=== PATIENT | female | born 1950 | race Caucasian/White ===

== ENCOUNTER 2016-06-11 10:48 | Emergency (ER) | payer MEDICARE, MEDICAID ==
[~2016-06-11] VITALS: Ht 157.4 cm; Wt 66.2 kg
[~2016-06-11 10:48] MED LIST: ACETAZOLAMIDE250 MG PO; AGGRENOX 25 MG-1 CER PO; ALBUTEROL SULFA60 ML INH; ALBUTEROL2.5 MG/0.5 INH; ALDACTONE25 MG PO; ALPRAZOLAM0.25 MG PO; ARANESP100 MCG/1 SC; ARICEPT5 M1 PO; ASPIRIN81 M1 PO; AVPAK LEVETIRA PO; AVPAK LEVETIRA500 MG PO; BREO ELLIPTA 11 EACH IH; BUMETANIDE2 MG PO; CARAFATE1 GM PO; CARDIZEM30 MG PO; CARVEDILOL12.5 MG PO; CEFTIN250 MG PO; CEFUROXIME AXE250 MG PO; CHEST CONGESTI400 MG PO; CIPRO500 MG PO; COLACE100 MG PO; COREG3.125 MG PO; DIGOX0.125 MG PO; DIGOXIN0.25 MG PO; DULCOLAX10 M1 RC; DULCOLAX10 MG R; DUONEB 3 MG/3 ML3 M1 INH; Duoneb 3ML 3 MG/3 ML INH; EXELON3 MG PO; EXELON9.5 MG/24 T; FE-TABS325 MG PO; FERROUS SULFAT325 M1 PO; FLEET ENEMA 13135 ML R; FLUCONAZOLE100 MG PO; FOLIC ACID0.4 MG PO; GOOD NEIGHBOR150 MG PO; GUAIFENESIN ER600 MG PO; HUMALOG100 U/ML SC; HUMULIN; HUMULIN R100 U/ML SC; IRON TABLETS325 MG PO; JANUVIA50 MG PO; KENALOG0.1% TP; KEPPRA500 MG PO; KLOR-CON20 MEQ PO; LANOXIN0.125 MG PO; LANOXIN250 MCG PO; LANTUS100 U/ML SC; LEVEMIR100 U/ML SC; LEVOFLOXACIN500 MG PO; LEVOTHYROXIN0.125 MG PO; LEVOTHYROXINE0.15 MG PO; LEXAPRO10 MG PO; LISINOPRIL2.5 MG PO; LOPRESSOR25 MG PO; Lopressor25 MG PO; MAG-OX 400400 MG PO; MAPAP325 MG PO; MEGACE 40400 MG/10 PO; METOPROLOL SUCC50 M1 PO; METOPROLOL TARTRATE PO; MICRO-K 1010 MEQ PO; MIDODRINE HCL10 MG PO; MIDODRINE HCL5 M1 PO; MIDODRINE HCL5 MG PO; MIRTAZAPINE15 M2 PO; MIRTAZAPINE30 MG PO; MOM30 ML PO; MYCOLOG CREAM 115 GM TD; NITROGLYCERIN0.4 MG PO; NITROSTAT0.4 MG SL; NOVOLIN R100 U/ML SC; NOVOLOG FLEX100 U/ML SC; NOVOLOG100 U/ML IJ; NYSTATIN CREAM15 GM; OMEPRAZOLE20 MG PO; ONDANSETRON ODT4 MG PO; PERCOCET 325 MG1 TA7 PO; PERFOROMIS20 MCG/2 M INH; PHOS LO667 MG PO; PHOS-NAK1 PDR PO; PREDNISONE10 MG PO; PRILOSEC20 MG PO; PRO STAT RC PO; PRO-STAT 64 3030 ML PO; PROSTAT PO; PROTEIN1 PDR PO; PROTONIX40 MG PO; PULMICORT RESP0.5 M1 INH; PULMICORT RESP0.5 MG INH; RENAGEL800 MG PO; RISPERDAL0.25 MG PO; RISPERDAL0.5 MG PO; RISPERIDONE1 M1 PO; SERTRALINE HCL100 MG PO; SERTRALINE100 MG PO; SONATA10 MG PO; STRESS FORMULA PO; SYMBICORT1 AE1 INH; SYNTHROID,LEV112 MCG PO; SYNTHROID,LEV150 MCG PO; SYNTHROID0.125 MG PO; TOPROL XL25 MG PO; VALACYCLOVIR H500 MG PO; VALTREX500 MG PO; VITAMIN D2400 IU PO; VITAMIN D50000 I2 PO; XOPENEX0.63 MG INH; ZOFRAN4 MG PO; ZOLOFT100 MG PO
[2016-06-11] MEDS ORDERED: OMEPRAZOLE D/R20 MG PO (11:00)
[2016-06-11] MEDS ORDERED: SERTRALINE HYDR50 MG PO (11:00)
[2016-06-11] MEDS ORDERED: DOCUSATE SOD100 MG PO (11:00)
[2016-06-11 11:30] LABS: BASO % 0.3 % (0.0-1.0); EOS % 0.6 % (1.0-4.0); HEMATOCRIT 31.7 % (37.0-47.0); HEMOGLOBIN 9.1 g/dl (12.0-16.0); IG # 0.1 10*3/uL (0.0-0.1); LYMPH # 0.3 10*3/uL (1.3-4.4); LYMPH % 5.4 % (27.0-41.0); MEAN CELL VOLUME 107.8 fl (81.0-99.0); MEAN CORPUSCULAR HGB CONC 28.7 g/dl (33.0-37.0); MEAN PLATELET VOLUME 9.6 fl (9.6-12.3); MONO # 0.7 10*3/uL (0.1-1.0); MONO % 10.9 % (3.0-9.0); NEUT # 5.2 10*3/uL (2.3-7.9); NEUT % 81.7 % (47.0-73.0); PLATELET COUNT AUTOMATED 66 10*3/uL (130-400); RED BLOOD COUNT 2.94 10*6/uL (4.10-5.10); RED CELL DISTRI WIDTH 17.4 % (0-14.5); WHITE BLOOD COUNT 6.3 10*3/uL (4.8-10.8)
[2016-06-11 11:45] LABS: ALBUMIN 3.1 gm/dl (3.1-4.5); BILIRUBIN, TOTAL 0.6 mg/dl (0.2-1.0); POTASSIUM 4.5 mmol/L (3.5-5.1)
[2016-06-11 12:26] VITALS: BP 96/48
[2016-06-11] MEDS ORDERED: RISPERDAL0.5 MG PO (12:50)
== END 2016-06-11 13:14 | disposition home or self-care (01) ==
LOC: ED 10:48
PROVIDERS: Registered Nurse
DX: R53.83 Other fatigue (principal); R53.81 Other malaise; N18.6 End stage renal disease; Z91.041 Radiographic dye allergy status; Z88.8 Allergy status to other drugs, medicaments and biological substances; Z79.899 Other long term (current) drug therapy

== ENCOUNTER 2016-06-17 16:27 | Inpatient (IN) | payer MEDICARE, MEDICAID ==
[~2016-06-17] VITALS: Ht 157.5 cm; Wt 70.0 kg
--- NOTE | ~2016-06-17 | WRIGHTHP ---
[place], [place] PATIENT HISTORY AND PHYSICAL EXAM NAME: KRISTINA CARVER [facility] #: [id number] UNIT #: [id number] ROOM: 408 DOCTOR: JUSTA HUGHES MD BIRTHDATE: [birth year] DOS: 06/17/2016 HISTORY OF PRESENT ILLNESS: This patient is 66 years old. The patient is very well known to us, comes in with complaints of confusion. The family states that she has been confused and tired and worn out. The patient was sent to the Emergency Room a few days ago for the same problem. Work up at that time was negative. The patient was discharged home on Risperdal, continued to have increased confusion, so the brought her back to the Emergency Room. The patient was quite agitated and confused initially when she arrived, but this morning, she was sleeping and is able to answer questions and does not have any evidence of confusion. PAST MEDICAL HISTORY: Significant for: 1. Benign hypertension. 2. Chronic atrial fibrillation, not a candidate for Coumadin. 3. History of cerebral hemorrhage with encephalomalacia. 4. Recent history of pancytopenia. 5. End-stage renal failure. 6. Vascular dementia. MEDICATIONS: She is on currently are Breo Ellipta b.i.d., DuoNebs q.i.d., digoxin 0.125 daily, Colace 100 daily, levothyroxine 0.125 daily, midodrine 10 mg t.i.d. for hemodialysis, mirtazapine 15 at bedtime, omeprazole 20 daily, ranitidine 150 b.i.d., Risperdal 0.5 at bedtime, sertraline daily, Exelon 9.5 mg daily. SOCIAL HISTORY: Nonsmoker, does not use any alcohol. Lives at home with her . PHYSICAL EXAMINATION: GENERAL: The patient is again awake and alert and oriented this morning. VITAL SIGNS: Graphic trend shows that she is afebrile. Pressure is 140/70, pulse of 86, respirations 14, afebrile. HEAD AND NECK: Shows a matted left eye. LUNGS: Diminished breath sounds. No wheezes, rales, or rhonchi heard. HEART: Irregular. ABDOMEN: Obese, but soft. EXTREMITIES: Without any edema. Stage II small ulcers noticed on the sacral area. ASSESSMENT AND PLAN: 1. End-stage renal failure, on dialysis. 2. Metabolic encephalopathy, possibly from vascular dementia. The patient is already on Exelon and Risperdal. Dr. Iyer will be consulted to see whether she would be a candidate for Behavioral Health Unit. CT of the head did not show any new pathology. 3. Benign hypertension, controlled. 4. Sacral decubiti. TheraHoney dressings have been ordered. 5. Cystic structures in the body of the pancreas, unable to have MRI because of the pacemaker, so a CA99 will be ordered. [place], [place] PATIENT HISTORY AND PHYSICAL EXAM NAME: KRISTINA CARVER UNIT #: [id number] ROOM: [facility] DOCTOR: JUSTA HUGHES MD BIRTHDATE: [birth year] JUSTA HUGHES MD CM:HISPHYS:PATIENT HISTORY AND PHYSICAL EXAMINATION [id number] JUSTA HUGHES MD 06/18/16 0947 interface
--- NOTE | ~2016-06-17 | EKG ---
[place], [place] ELECTROCARDIOGRAM REPORT NAME: KRISTINA CARVER UNIT #: [id number] ROOM: 408 DOCTOR: HENRY KIRKPATRICK MD BIRTHDATE: [birth year] DOS: 06/17/2016 TIME: 17:05 p.m. FINDINGS: The patient appears to be in a paced rhythm at a rate of 70. Background rhythm could not be determined and maybe atrial fibrillation. Ventricular complexes are 100% paced. Abnormal electrocardiogram. HENRY KIRKPATRICK MD CM:EKGRPT:ELECTROCARDIOGRAM REPORT [id number] HENRY KIRKPATRICK MD
--- NOTE | ~2016-06-17 | DS ---
[place], [place] DISCHARGE SUMMARY NAME: KRISTINA CARVER [facility] #: [id number] UNIT #: [id number] ROOM: 408 DOCTOR: JUSTA HUGHES MD BIRTHDATE: [birth year] DOS: 06/19/2016 HISTORY OF PRESENT ILLNESS AND HOSPITAL COURSE: This patient is very well known to us. The patient was brought into the Emergency Room by her saying that she has been confused and also has been tired and weak. She had a nosebleed that day morning. She has had multiple ER visits with similar the complaints, was recently seen in the ER, was advised addition of Risperdal to her regimen. After she arrived, she appeared to be quite confused, agitated, anxious and combative. The Risperdal dosage was increased. After admission, the patient also had a consultation with Dr. Iyer as well as renal consult with Dr. Baca. The patient's medications remained unchanged except for the increase in the Risperdal. CT of the abdomen and pelvis was negative except for a cystic structure in the pancreas. They recommended an MRI. Since she has a pacemaker, we are unable to do an MRI. A CA 19-9 was ordered. I do not have the results of that at the time of dictation. The patient's confusion and encephalopathy has improved and she is back to her baseline, so the plan is to discharge her to home. DISCHARGE DIAGNOSES: 1. Vascular dementia. 2. Metabolic encephalopathy from dementia. 3. Hypothyroidism. 4. End-stage renal failure, on dialysis. 5. Chronic atrial fibrillation. 6. History of cerebral hemorrhage. 7. Major depression, mild, recurrent. 8. Type 2 diabetes mellitus, diet controlled. 9. Benign hypertension. 10. Acute conjunctivitis, left eye. DISCHARGE MEDICATIONS: Medications on discharge will be the same as on admission, no changes were made other than Risperdal. Risperdal 1 mg at bedtime, Cipro for local application to eyes twice a day for 7 days, levothyroxine 0.125 mg daily, Exelon 9.5 mg daily, mirtazapine 15 at bedtime, Midrin 10 t.i.d. on dialysis days, digoxin 0.125 daily, Breo Ellipta 100 twice a day, DuoNeb q.i.d., Colace 100 daily, sertraline 50 daily, also omeprazole 20 daily. Ranitidine 150 mg daily was stopped. [place], [place] DISCHARGE SUMMARY [facility]: [id number] #: [id number] ROOM: [facility] DOCTOR: JUSTA HUGHES MD BIRTHDATE: [birth year] JUSTA HUGHES MD CM:DISCHARG [id number] JUSTA HUGHES MD 06/19/16 1621 interface
--- NOTE | ~2016-06-17 | CON ---
[place], [place] REPORT OF CONSULTATION [facility]STINA [id number] UN[facility] #: [id number] ROOM: 408 DOCTOR: STEPHANIA LUCAS MD BIRTHDATE: [birth year] DOS: 06/19/2016 PSYCHIATRIC CONSULT CHIEF COMPLAINT: "I don't know what they are going to do to me today." HISTORY OF PRESENT ILLNESS: This is a 66-year-old white female with end-stage renal disease on dialysis, presenting to the Emergency Room with complaints of nosebleed that would not stop and coughing up blood secondary to this. She was admitted due to this factor and the fact that she had episodic confusion. She has multiple medical issues including anemia of chronic disease, atrial fibrillation with rapid ventricular response, cardiomegaly, chronic idiopathic thrombocytopenia, chronic renal failure, depression, diabetes, end-stage renal disease, GI bleed, hypertension, cardiac pacemaker insertion, hypothyroidism, intracerebral hemorrhage, metabolic encephalopathy, obstructive sleep apnea, pericarditis, pulmonary congested and seizure disorder. MENTAL STATUS: The patient is alert and oriented to person, place and time. She did at first ask if I was the anesthesiologist, later, she said, "No, you are the doctor whose office is on [address], you are the psychiatrist." She seemed fairly pleasant and bright, she was fairly much alert and oriented to all 3 spheres. She has some short term memory loss, but nothing major. She does endorse some depressive symptomatology, but nothing severe. She denies suicidality, homicidality or any self-injurious thoughts. There is no ban, no psychosis. DIAGNOSIS: Major depression, recurrent. PLAN: I will discontinue the Zoloft as this is subtherapeutic and she is already on Remeron. This puts her at risk for serotonin syndrome and other side effects. I will increase her Exelon patch from 9.5-13.3 mg daily, maximizing its potential benefit. We will rule out any other organic factors by checking a B12, vitamin D, TSH and serum ammonia level. At this point, she can follow up in the office and is not a candidate for inpatient psychiatric stabilization. STEPHANIA LUCAS MD CM:CONSTR:REPORT OF CONSULTATION 0854 06/20/16 0129 interface
--- NOTE | ~2016-06-17 | PR ---
[place], [place] PROGRESS NOTE NAME: KRISTINA CARVER [facility] #: [id number] UNIT #: [id number] ROOM: 408 DOCTOR: JUSTA HUGHES MD BIRTHDATE: [birth year] DOS: 06/19/2016 SUBJECTIVE: The patient has no complaints rested well, did not have any periods of confusion. This morning, she is aware that she is in the hospital. OBJECTIVE: VITAL SIGNS: Graphic trend shows blood pressure of 94/49, pulse of 70, respirations 20, temperature 97.7. LUNGS: Clear. HEART: Irregular. ABDOMEN: Obese. EXTREMITIES: Without any edema. ASSESSMENT AND PLAN: 1. Vascular dementia with metabolic encephalopathy seems to be stable on the current dose of medications. 2. End-stage renal failure, on dialysis. No new changes made in the treatment plan. Continue current care. The patient is stable and can be discharged today. JUSTA HUGHES MD CM:PNTRANS [id number] JUSTA HUGHES MD 06/20/16 0024 interface
[2016-06-17 16:27] VITALS: BP 115/21
[~2016-06-17 16:27] MED LIST changes: +DOCUSATE SOD100 MG PO; +OMEPRAZOLE D/R20 MG PO; +SERTRALINE HYDR50 MG PO
[2016-06-17 17:15] LABS: BASO % 0.2 % (0.0-1.0); EOS # 0.1 10*3/uL (0.0-0.4); EOS % 0.6 % (1.0-4.0); HEMATOCRIT 30.6 % (37.0-47.0); HEMOGLOBIN 8.8 g/dl (12.0-16.0); IG # 0.1 10*3/uL (0.0-0.1); LYMPH # 0.2 10*3/uL (1.3-4.4); LYMPH % 2.4 % (27.0-41.0); MEAN CELL VOLUME 107.7 fl (81.0-99.0); MEAN CORPUSCULAR HGB CONC 28.8 g/dl (33.0-37.0); MEAN PLATELET VOLUME 9.8 fl (9.6-12.3); MONO # 0.6 10*3/uL (0.1-1.0); MONO % 7.4 % (3.0-9.0); NEUT # 7.2 10*3/uL (2.3-7.9); NEUT % 87.8 % (47.0-73.0); NUCLEATED RED BLOOD CELL 0.2 % (0.0-0.0); PLATELET COUNT AUTOMATED 69 10*3/uL (130-400); RED BLOOD COUNT 2.84 10*6/uL (4.10-5.10); RED CELL DISTRI WIDTH 17.2 % (0-14.5); WHITE BLOOD COUNT 8.2 10*3/uL (4.8-10.8)
[2016-06-17 17:23] LABS: INTERNATIONAL NORM RATIO 1.1 (2.0-3.5); PROTHROMBIN TIME 11.4 SECONDS (9.0-12.4)
[2016-06-17 17:33] LABS: BILIRUBIN, TOTAL 0.7 mg/dl (0.2-1.0); CKMB 3.3 ng/ml (0.5-3.6); MAGNESIUM 1.6 mg/dL (1.5-2.1); POTASSIUM 4.6 mmol/L (3.5-5.1); TOTAL PROTEIN 6.9 gm/dL (6.4-8.2); TROPONIN I 0.041 ng/ml (<0.045)
[2016-06-17 17:46] VITALS: BP 80/40
[2016-06-17 18:02] VITALS: BP 85/49
[2016-06-17 19:21] VITALS: BP 93/46
[2016-06-17 21:03] VITALS: BP 98/45
[2016-06-18] VITALS: BP 98/50
[2016-06-18 08:00] VITALS: BP 92/40
[2016-06-18 11:52] VITALS: BP 95/41
[2016-06-18 16:00] VITALS: BP 93/47
[2016-06-18 20:00] VITALS: BP 92/46
[2016-06-19] VITALS: BP 94/49
[2016-06-19] MEDS ORDERED: CIPROFLOXACIN2.5 M1 OPH (06:24)
[2016-06-19] MEDS ORDERED: RISPERIDONE1 MG PO (06:24)
[2016-06-19 08:00] VITALS: BP 101/52
[2016-06-19 10:55] LABS: VITAMIN D, 25-HYDROXY 18.9 ng/mL (30-100)
== END 2016-06-19 11:25 | disposition home or self-care (01) | DRG 884 ==
LOC: ED 16:27 → EDHOLD 20:01 → 4E 20:01
PROVIDERS: Physician Assistant; Psychiatry & Neurology Psychiatry
DX: F01.50 Vascular dementia, unspecified severity, without behavioral disturbance, psychotic disturbance, mood disturbance, and anxiety (principal); G93.41 Metabolic encephalopathy; L89.150 Pressure ulcer of sacral region, unstageable; D69.3 Immune thrombocytopenic purpura; N18.6 End stage renal disease; E11.22 Type 2 diabetes mellitus with diabetic chronic kidney disease; K86.1 Other chronic pancreatitis; I13.11 Hypertensive heart and chronic kidney disease without heart failure, with stage 5 chronic kidney disease, or end stage renal disease; F33.0 Major depressive disorder, recurrent, mild; I48.2 Chronic atrial fibrillation; G47.33 Obstructive sleep apnea (adult) (pediatric); G40.909 Epilepsy, unspecified, not intractable, without status epilepticus; H10.12 Acute atopic conjunctivitis, left eye; D64.9 Anemia, unspecified; E03.9 Hypothyroidism, unspecified; Z79.01 Long term (current) use of anticoagulants; Z86.73 Personal history of transient ischemic attack (TIA), and cerebral infarction without residual deficits; Z79.899 Other long term (current) drug therapy; Z88.8 Allergy status to other drugs, medicaments and biological substances; Z99.2 Dependence on renal dialysis; Z91.041 Radiographic dye allergy status; Z90.711 Acquired absence of uterus with remaining cervical stump; Z90.49 Acquired absence of other specified parts of digestive tract; Z82.49 Family history of ischemic heart disease and other diseases of the circulatory system; Z82.3 Family history of stroke; Z83.3 Family history of diabetes mellitus

== ENCOUNTER 2016-10-04 20:08 | Emergency (ER) | payer MEDICARE, MEDICAID ==
[~2016-10-04] VITALS: Ht 165 cm; Wt 66.2 kg
[2016-10-04 20:08] VITALS: BP 88/54
[~2016-10-04 20:08] MED LIST changes: +CIPROFLOXACIN2.5 M1 OPH; +RISPERIDONE1 MG PO
[2016-10-04 20:58] LABS: INTERNATIONAL NORM RATIO 1.1 (2.0-3.5); PROTHROMBIN TIME 11.4 SECONDS (9.0-12.4)
[2016-10-04 21:05] LABS: ALBUMIN 2.5 gm/dl (3.1-4.5); BILIRUBIN, TOTAL 0.5 mg/dl (0.2-1.0); MAGNESIUM 1.8 mg/dL (1.5-2.1); POTASSIUM 3.6 mmol/L (3.5-5.1); TROPONIN I 0.036 ng/ml (<0.045)
[2016-10-04 22:05] LABS: HEMATOCRIT 27.2 % (37.0-47.0); HEMOGLOBIN 7.5 g/dl (12.0-16.0); MEAN CELL VOLUME 116.2 fl (81.0-99.0); MEAN CORPUSCULAR HGB 32.1 pg (27.0-31.0); MEAN CORPUSCULAR HGB CONC 27.6 g/dl (33.0-37.0); MEAN PLATELET VOLUME 11.1 fl (9.6-12.3); NUCLEATED RED BLOOD CELL 0.7 % (0.0-0.0); PLATELET COUNT AUTOMATED 37 10*3/uL (130-400); RED BLOOD COUNT 2.34 10*6/uL (4.10-5.10); RED CELL DISTRI WIDTH 18.5 % (0-14.5); WHITE BLOOD COUNT 5.4 10*3/uL (4.8-10.8)
[2016-10-04 22:25] LABS: BASOPHIL # 0.1 10*3/uL (0-0.1); BASOPHILS 1 % (0-1); EOSINOPHIL # 0.1 10*3/uL (0-0.4); EOSINOPHILS 1 % (1-4); LYMPHOCYTE # 0.2 10*3/uL (1.3-4.4); MONOCYTE # 0.3 10*3/uL (0.1-1.0); NEUTROPHIL # 4.8 10*3/uL (2.3-7.9); NEUTROPHILS 88 % (47-73); PLATELET SUFFICIENCY LOW (NORMAL); TOTAL CELLS COUNTED 100 #CELLS
== END 2016-10-04 23:03 | disposition home or self-care (01) ==
LOC: ED 20:08
PROVIDERS: Nurse Practitioner Family
DX: R42 Dizziness and giddiness (principal); R06.02 Shortness of breath; Z91.041 Radiographic dye allergy status; Z88.8 Allergy status to other drugs, medicaments and biological substances; Z79.899 Other long term (current) drug therapy

== ENCOUNTER 2016-10-13 12:44 | Inpatient (IN) | payer MEDICARE, MEDICAID ==
[~2016-10-13] VITALS: Ht 160 cm; Wt 66.3 kg
[2016-10-13] VITALS (28 sets, daily range): BP systolic 53–91; BP diastolic 25–94
--- NOTE | ~2016-10-13 | WRIGHTHP ---
[place], [place] PATIENT HISTORY AND PHYSICAL EXAM [id number] UNIT #: [id number] ROOM: [place] [address] DOCTOR: JUSTA HUGHES MD BIRTHDATE: [birth year] DOS: 10/13/2016 HISTORY OF PRESENT ILLNESS: This patient is very well known to us. She was brought in to the office for a routine appointment by . The patient was quite confused and is not able to answer questions appropriately, but she has been getting her dialysis and was noted to have low blood pressure, but the dialysis continued. She denies having any chest pains, palpitations or shortness of breath. Does not have any fever or chills. Does not have any urinary symptoms. PAST MEDICAL HISTORY: 1. Diabetes mellitus with diabetic nephropathy and end-stage renal failure. 2. Chronic hypotension. 3. Chronic atrial fibrillation. 4. Not a candidate for anticoagulants. SOCIAL HISTORY: Nonsmoker. Lives at home with her . PHYSICAL EXAMINATION: GENERAL: The patient is awake and alert and oriented. VITAL SIGNS: Blood pressure was 80/60, pulse of 90 and irregular, respirations 14, afebrile. LUNGS: Diminished breath sounds, clear. HEART: Irregular. ABDOMEN: Obese. EXTREMITIES: Without any edema. NEUROLOGIC: Awake and alert, oriented to person and place. ASSESSMENT AND PLAN: 1. The patient has encephalopathy, possible metabolic, rule out urinary tract infection and sepsis. 2. End-stage renal failure, on dialysis. The patient has progressively worsened over the last several months and was suggested hospice care, but the family was not ready for that. 3. Chronic hypotension from end-stage renal failure. The patient is already on Midrin. We will make it at daily and we will ask Dr. Abraham to see the patient. [place], [place] PATIENT HISTORY AND PHYSICAL EXAM NAME: KRISTINA CARVER UNIT #: [id number] ROOM: [place] [address] DOCTOR: JUSTA HUGHES MD BIRTHDATE: [birth year] JUSTA HUGHES MD CM:HISPHYS:PATIENT HISTORY AND PHYSICAL EXAMINATION 0959 JUSTA HUGHES MD 10/26/16 0116 interface
--- NOTE | 2016-10-13 13:45 | NUR ---
PATIENT ARRRIVED TO THE FLOOR FROM FIRST FLOOR ADMITTING A DIRECT ADMIT FROM THE OFFICE OF DR. HUGHES. PATIENT'S BLOOD PRESSURE WAS 60/40 AND HER HEART RATE DIPPED INTO THE 30S FOR A BRIEF PERIOD. PATIENTS' WAS NOT ON THE FLOOR TO VERIFY HER CODE STATUS. GAUGE MACHINE OPERATOR TIMO SPENCER WAS ON THE UNIT AND A RAPID RESPONSE WAS CALLED.
--- NOTE | 2016-10-13 14:00 | NUR ---
A 66, admitted to ICCU, under the services of JUSTA Holder MD with a diagnosis of ENCEPHALOPATHY. Chief complaint is CONFUSION, LOW BLOOD PRESSURE. Patient arrived via wheel chair from [place]. Monitor applied. Initial assessment completed. Vital signs taken and recorded. JUSTA HOLDER MD notified of admission to the unit. Orders received. See assessment for past medical history, medications and allergies. Patient and/or family oriented to unit. [facility] visitation policy reviewed. Clothing/patient valuable form completed. GE[place]IA BROWN
--- NOTE | 2016-10-13 14:00 | NUR ---
PATIENT WAS TRANSFERRED TO ICCU.
[2016-10-13 14:07] LABS: HEMATOCRIT 32.3 % (37.0-47.0); HEMOGLOBIN 9.1 g/dl (12.0-16.0); MEAN CELL VOLUME 116.2 fl (81.0-99.0); MEAN CORPUSCULAR HGB 32.7 pg (27.0-31.0); MEAN CORPUSCULAR HGB CONC 28.2 g/dl (33.0-37.0); MEAN PLATELET VOLUME 11.6 fl (9.6-12.3); NUCLEATED RED BLOOD CELL 0.1 10*3/uL (0.0-0.0); PLATELET COUNT AUTOMATED 55 10*3/uL (130-400); RED BLOOD COUNT 2.78 10*6/uL (4.10-5.10); RED CELL DISTRI WIDTH 18.9 % (0-14.5); WHITE BLOOD COUNT 6.9 10*3/uL (4.8-10.8)
--- NOTE | 2016-10-13 14:15 | NUR ---
DR HUGHES UPDATED ON PT'S CONDITION. ADMISSION ORDERS RECEIVED.
[2016-10-13 14:26] LABS: ALBUMIN 2.3 gm/dl (3.1-4.5); CREATININE 3.73 mg/dL (0.55-1.02); POTASSIUM 3.5 mmol/L (3.5-5.1); TOTAL PROTEIN 6.2 gm/dL (6.4-8.2)
[2016-10-13 14:28] LABS: PLATELET SUFFICIENCY LOW (NORMAL); POLYCHROMASIA SLIGHT; TOTAL CELLS COUNTED 100 #CELLS
[2016-10-13 14:34] LABS: TROPONIN I 0.046 ng/ml (<0.045)
--- NOTE | 2016-10-13 15:28 | NUR ---
INCREASED LEVOPHED GTT TO 15 MICS FOR SBP 0F 60.
--- NOTE | 2016-10-13 15:44 | NUR ---
DR NEWTON NOTIFIED OF CONSULT. NO NEW ORDERS RECEIVED.
--- NOTE | 2016-10-13 16:10 | NUR ---
DR MENA NOTIFIED OF CONSULT. NO NEW ORDERS RECEIVED.
--- NOTE | 2016-10-13 16:19 | NUR ---
CAMILA BLOORS TO FAX MED LIST R/T RIDDHIBA UNAWARE OF HOME MEDS.
[2016-10-13] MEDS ORDERED: ZANTAC 150150 MG PO (17:48)
[2016-10-13] MEDS ORDERED: ONDANSETRON HYDR4 MG PO (17:54)
[2016-10-13] MEDS ORDERED: 24 HOUR ALLER15.8 ML NAS (17:56)
[2016-10-13] MEDS ORDERED: CALCIUM ACETAT667 MG PO (17:57)
--- NOTE | 2016-10-13 18:53 | NUR ---
Perianal excoriation, family states is present re: diarrhea. decline photo. scab to RAN , family state is well healing.
--- NOTE | 2016-10-13 19:10 | NUR ---
Dr. Andersen was called and updated.
--- NOTE | 2016-10-13 20:30 | NUR ---
DR MOORE NOTIFIED OF TROPONIN 0.142. NO NEW ORDERS AT THIS TIME.
--- NOTE | 2016-10-13 20:43 | NUR ---
DR MOORE NOTIFIFED OF HEART RATE 120-130'S AND INFORMED THAT DIGOXIN WAS NOT ORDERED. DR MOORE SAID "WHATEVER DR HUGHES WANTED."
--- NOTE | 2016-10-13 20:50 | NUR ---
DR HUGHES INFORMED OF PT HEART RATE AND NEW ORDER FOR DIG 0.25MG IV NOW, D/C IVF'S AND TO TAPER LEVOPHED OFF.
--- NOTE | 2016-10-13 21:09 | NUR ---
DIG 0.25MG IV GIVEN ORDERED.
--- NOTE | 2016-10-13 21:45 | NUR ---
PT HR 80'S AT THIS TIME. RESTING IN BED WATCHING TV.
--- NOTE | 2016-10-13 22:35 | NUR ---
EDY CAMP NOTIFIED OF NEED TO SPEAK TO SKEET OPERATOR FROM THE CORONERS OFFICE.
--- NOTE | 2016-10-13 22:40 | NUR ---
RAJAT FROM THE TURN SUPERVISOR'S OFFICE CALLED, INFORMATION PROVIDED. STATE SHE IS OKAY TO BE RELEASED FROM THEIR STANDPOINT.
--- NOTE | 2016-10-13 22:40 | NUR ---
2207: PT HEART RATE UP INTO 160'S AND V FIB ON MONITOR. CHECKED PT AND PT WAS UNRESPONSIVE. ARTHUR SHERIDAN CALLED AND COMPRESSIONS STARTED. SEE CODE SHEET. CODE CALLED AT 2228. DR HUGHES NOTIFIED AT 2237. CALLED AT 2209 AND DAUGHTER DELMIS CALLED AT 2214.
--- NOTE | 2016-10-13 23:00 | NUR ---
FAMILY HERE. CALLED AND HERE. ALL PAPERWORK FILLED OUT.
--- NOTE | 2016-10-14 00:17 | NUR ---
[facility] NOTIFIED, REF # [id number]. TALKED WITH TOMMY. INFORMED BY TOMMY THAT TRANSFER TO [facility] HOME ON HOLD FOR POSSIBLE DONATION.
--- NOTE | 2016-10-14 01:35 | NUR ---
SALINE DROPS PLACED IN EYES AND ICE PACKS PLACED PER [facility]. PT TAKEN TO DELLA AT THIS TIME.
== END 2016-10-13 22:29 | disposition expired | DRG 871 ==
LOC: 5E 12:44 → ICCU 13:56
PROVIDERS: Internal Medicine; ADMIT Internal Medicine
DX: A41.9 Sepsis, unspecified organism (principal); N18.6 End stage renal disease; G93.41 Metabolic encephalopathy; I95.89 Other hypotension; E11.22 Type 2 diabetes mellitus with diabetic chronic kidney disease; I48.2 Chronic atrial fibrillation; N39.0 Urinary tract infection, site not specified; E66.9 Obesity, unspecified; Z51.5 Encounter for palliative care; Z99.2 Dependence on renal dialysis; Z68.25 Body mass index [BMI] 25.0-25.9, adult